=== PATIENT | female | born 1935 | race Caucasian/White ===

== ENCOUNTER 2016-06-21 13:59 | Emergency (ER) | payer MEDICARE, OTHER ==
[2016-06-21 13:32] LABS: BASOPHILS 0.2 %; BASOPHILS ABSOLUTE 0.01 10/3/uL (0.0-0.16); EOSINOPHILS ABSOLUTE 0.04 10/3/uL (0.0-0.53); LYMPHOCYTES 24.7 %; MEAN CORPUS HGB CONC 34.3 g/dL (32.0-36.0); MEAN CORPUSCULAR HEMOGLOB 29.7 pg (26.0-34.0); MEAN CORPUSCULAR VOLUME 86.6 fL (80-100); MEAN PLATELET VOLUME 9.8 fL (9.2-13.0); MONOCYTES 7.7 %; MONOCYTES ABSOLUTE 0.31 10/3/uL (0.21-1.20); NEUTROPHILS 66.4 %; NEUTROPHILS ABSOLUTE 2.69 10/3/uL (2.02-8.40); PLATELET COUNT 220 10/3/uL (150-400); RBC DISTRIBUTION WIDTH 13.6 % (12.0-16.0); RED CELL COUNT 4.04 10/6/uL (4.0-5.6)
[2016-06-21 13:33] LABS: ER CBC TAT 0 Hrs 08 Mins; MANUAL DIFF NO %; WHITE BLOOD CELLS 4.1 10/3/uL (4.5-10.5)
[2016-06-21 13:35] LABS: ASCORBIC ACID (UR NOT ORDER) NEG (NEG); BILIRUBIN, URINE NEGATIVE (NEG); ER URINALYSIS TAT 0 Hrs 00 Mins; KETONE, URINE NEGATIVE (NEG); LEUKOCYTE ESTERASE(NOT OR MOD (NEG); NITRITE (URINE) NEG (NEG); WBC (NOT ORDERED) (RFLEX) 38 (0-5)
[2016-06-21 13:40] LABS: INTERNATIONAL NORMAL RATI 1.1 UNITS (-); PARTIAL THROMBO TIME 30.2 SEC (22.5-37.2); PROTIME (NOT ORD) 14.5 SEC (12.0-14.5)
[2016-06-21 13:57] LABS: ALBUMIN 4.1 G/DL (3.5-5.0); ALKALINE PHOSPHATASE 66 U/L (45-117); BUN (BLOOD UREA NITROGEN) 15 MG/DL (6-23); CALCIUM, SERUM 9.7 MG/DL (8.5-10.4); CHLORIDE, SERUM 104 MMOL/L (96-112); CO2 (CARBON DIOXIDE) 23 MMOL/L (24-34); CREATININE 1.05 MG/DL (0.55-1.02); DIRECT BILIRUBIN 0.1 MG/DL (0.0-0.4); GFR AFRICAN AMERICAN 58 ML/MIN (>=60); GFR NON AFRICAN AMERICAN 50 ML/MIN (>=60); GLUCOSE, SERUM 107 MG/DL (60-99); INDIRECT BILIRUBIN(NOT ORDER) 0.4 MG/DL (0.1-0.9); POTASSIUM, SERUM 3.6 MMOL/L (3.5-5.3); SGOT(AST) 15 U/L (5-40); SGPT(ALT) 16 U/L (5-65); SODIUM, SERUM 139 MMOL/L (135-148); TOTAL BILIRUBIN 0.5 MG/DL (0-1.2); TOTAL PROTEIN 7.7 G/DL (6.0-8.5); TROPONIN I <0.02 NG/ML (<0.05)
[2016-06-21 13:59] LABS: CHEST PAIN PROFILE TAT 0 Hrs 32 Mins
[~2016-06-21 13:59] MED LIST: ASAB PO; CEFT5 PO; CIP2 PO; CRESTOR20 MG PO; LOP25 PO; OS500+D PO; PRILO PO; REFRES1 OPH; T PO; ULTRAM50 PO
[2016-06-21 14:57] LABS: PROCALCITONIN <0.05 ng/mL (<0.5)
== END 2016-06-21 15:35 | disposition home or self-care (01) ==
LOC: ER 13:59
PROVIDERS: Emergency Medicine
DX: N39.0 Urinary tract infection, site not specified (principal); I10 Essential (primary) hypertension; Z95.5 Presence of coronary angioplasty implant and graft; K21.9 Gastro-esophageal reflux disease without esophagitis; Z85.3 Personal history of malignant neoplasm of breast; Z88.0 Allergy status to penicillin; Z79.82 Long term (current) use of aspirin
CPT/HCPCS: 80048; 80076; 81001; 83690; 83735; 84145; 84443; 84484; 85025; 85610; 85730; 87077; 87086; 87186; 93005; 99284